=== PATIENT | male | born 1975 | race Caucasian/White ===

== ENCOUNTER 2018-12-12 01:20 | Emergency (ER) | payer SELFPAY ==
[~2018-12-12] VITALS: Ht 188 cm; Wt 113.4 kg
[2018-12-12 01:25] VITALS: BP 143/111
--- NOTE | 2018-12-12 01:25 | NUR ---
PT TAKEN TO BED 7
[2018-12-12] MEDS ORDERED: ACETAMINOPHEN EXTRA STRENGTH 500 MG TAB PO ONE (01:30)
[2018-12-12] MEDS ORDERED: ACETAMINOPHEN EXTRA STRENGTH 500 MG TAB ONE (01:43)
--- NOTE | 2018-12-12 01:44 | NUR ---
43/M BIB . COUGH 1 WEEK WITH CONGESTION. FEVER 102. ORAL. TYLENOL 1000MG GIVEN AT THIS TIME. AO X4 . ABLE TO VERBALIZE NEEDS. LUNG SOUNDS COURSE BILAT. EVEN UNLABORED BREATHING/ DAUGHTER HAS PNA AT THIS TIME AND USES DAUGHTERS INHALER WHEN CANNOT BREATHE. DENIES PAIN. NO HX. NO RX NOTED. BED IN LOWEST POSITION. HOB 30. COOLING MEASURES INITIATED. MD MADE AWARE. WILL CONTINUE TO MONITOR.
--- NOTE | 2018-12-12 01:50 | NUR ---
ADMINISTERED TYLENOL 1000MG FOR 89F FEVER AT THIS TIME.
--- NOTE | 2018-12-12 02:35 | NUR ---
PT TEMP 99.8F AT THIS TIME. DENIES CHILLS.
[2018-12-12] MEDS ORDERED: KETOROLAC 30 MG/ML VIAL IVP ONE (02:45)
[2018-12-12] MEDS ORDERED: NACL 0.9% 1,000 ML IV ONE (02:45)
[2018-12-12] MEDS ORDERED: KETOROLAC 30 MG/ML VIAL ONE (03:12)
[2018-12-12 03:27] VITALS: BP 143/111
--- NOTE | 2018-12-12 03:27 | NUR ---
Patient discharged with v/s stable. Written and verbal after care instructions given and explained. Patient alert, oriented and verbalized understanding of instructions. Ambulatory with steady gait. All questions addressed prior to discharge. ID band removed. Patient advised to follow up with PMD. Rx of PREDNISONE, ZOFRAN, MOTRIN given. Patient educated on indication of medication including possible reaction and side effects. Opportunity to ask questions provided and answered.
--- NOTE | 2018-12-19 06:49 | NUR ---
Late entry. IV fluid bolus completed at 8480
== END 2018-12-12 03:27 | disposition home or self-care (01) ==
LOC: MED 01:20
DX: J11.1 Influenza due to unidentified influenza virus with other respiratory manifestations (principal)
CPT/HCPCS: 96374; 99283; J1885; J7030; 96361